=== PATIENT | female | born 1940 | race African-American/Black ===

== ENCOUNTER 2016-06-29 05:24 | Inpatient (IN) | payer MEDICARE, BC ==
[2016-06-27 13:16] LABS: BASOPHILS 0.2 %; BASOPHILS ABSOLUTE 0.02 10/3/uL (0.0-0.16); EOSINOPHILS 0.5 %; EOSINOPHILS ABSOLUTE 0.04 10/3/uL (0.0-0.53); HEMATOCRIT 36.4 % (36.0-48.0); HEMOGLOBIN 11.3 g/dL (12.0-16.0); IMMATURE GRANULOCYTES 0.2 %; IMMATURE GRANULOCYTES ABSOLUTE 0.02 10/3/uL (0.0-0.11); LYMPHOCYTES 10.3 %; LYMPHOCYTES ABSOLUTE 0.83 10/3/uL (0.67-4.30); MEAN CORPUSCULAR HEMOGLOB 25.9 pg (26.0-34.0); MEAN CORPUSCULAR VOLUME 83.5 fL (80-100); MEAN PLATELET VOLUME 9.1 fL (9.2-13.0); MONOCYTES 4.5 %; MONOCYTES ABSOLUTE 0.36 10/3/uL (0.21-1.20); NEUTROPHILS 84.3 %; PLATELET COUNT 158 10/3/uL (150-400); RBC DISTRIBUTION WIDTH 16.4 % (12.0-16.0); RED CELL COUNT 4.36 10/6/uL (4.0-5.6); WHITE BLOOD CELLS 8.1 10/3/uL (4.5-10.5)
[2016-06-27 13:17] LABS: MANUAL DIFF NO %
[2016-06-27 13:31] LABS: BUN (BLOOD UREA NITROGEN) 15 MG/DL (6-23); CALCIUM, SERUM 8.8 MG/DL (8.5-10.4); CHLORIDE, SERUM 109 MMOL/L (96-112); CO2 (CARBON DIOXIDE) 26 MMOL/L (24-34); CREATININE 1.02 MG/DL (0.55-1.02); GFR AFRICAN AMERICAN 62 ML/MIN (>=60); GFR NON AFRICAN AMERICAN 53 ML/MIN (>=60); POTASSIUM, SERUM 3.8 MMOL/L (3.5-5.3); SODIUM, SERUM 144 MMOL/L (135-148)
[2016-06-27 13:32] LABS: GLUCOSE, SERUM 116 MG/DL (60-99)
[2016-06-27 13:53] LABS: ASCORBIC ACID (UR NOT ORDER) NEG (NEG); BILIRUBIN, URINE NEGATIVE (NEG); KETONE, URINE NEGATIVE (NEG); LEUKOCYTE ESTERASE(NOT OR NEG (NEG); WBC (NOT ORDERED) (RFLEX) 5 (0-5)
--- NOTE | ~2016-06-29 | OP ---
Record Of Operation [facility] [address] [place]. [address] NAME: SUSIE PACHECO : 39 STATUS : DIS IN PAT#: [id number] AGE: 75 ADM/REG DATE : 06/29/16 MR#: [id number] REPORT SERV DATE: 07/11/16 DICTATED BY: RANDOLPH ALONSO II DATE: 07/08/16 REPORT STATUS : Draft TRANSCRIBED BY: MODL DATE: 07/08/16 DATE OF PROCEDURE: 06/29/2016 SURGEON: Randolph Alonso M.D. FACILITY SERVICE MANAGER: Dr. Holloway. 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 PROCEDURES: 1. Ultrasound-guided sheath insertion into left common femoral artery. 2. Distal thoracic and abdominal aortogram. 3. Placement of second sheath into left upper extremity brachial artery. 4. Selective catheterization of celiac artery. 5. Percutaneous endovascular repair of distal thoracoabdominal aneurysm using an aorto to aorto prosthesis. 6. Placement of distal extension cuff x2 for treatment of type 1 endoleak. 7. Percutaneous endovascular anchoring of distal attachment site of thoracoabdominal stent graft. ANESTHESIA: General. IV FLUIDS: 1300 mL. ESTIMATED BLOOD LOSS: 300 mL. CONTRAST: 139. BRIEF HISTORY: Ms. Pacheco is a pleasant 75-year-old female whom we followed for a distal thoracic aneurysm that extends down to the base near the celiac. She has had progressive enlargement of the aneurysm. She now reports occasional back pain and left-sided pain. She has extremely small body habitus. The diameter of the aorta is greater than two times of the normal thoracic or and infrarenal aorta. After a long discussion with the patient, she was recommended to undergo endovascular repair. In order to repair the graft from an endovascular standpoint, this would require possible stenting of the celiac artery, and I discussed this in depth with the patient and the relative. Ultimately we will use of the device based on the distal . DETAILS OF THE PROCEDURE: She was taken to the operating room and placed in supine position on the table. The abdomen and both groins and the left arm were prepped and draped in a sterile fashion. We used ultrasound to identify the brachial artery and both femoral arteries, performed a percutaneous puncture on the groin, so we placed a ProGlide devices and then passed an 11-Portuguese sheath. We then passed a catheter into the abdominal aorta and into the thoracic aorta. Aortogram was performed demonstrating a large aneurysm that did in Record Of Operation [facility] [id number] [place]. [address] NAME: USSIE PACHECO : 39 STATUS : DIS IN PAT#: [id number] AGE: 75 ADM/REG DATE : 06/29/16 MR#: [id number] REPORT SERV DATE: 07/11/16 DICTATED BY: RANDOLPH ALONSO II DATE: 07/08/16 REPORT STATUS : Draft TRANSCRIBED BY: GEORGINA DATE: 07/08/16 fact extend down to near the base of the celiac artery. The renal vessels were patent. The SMA was patent. There was a significant size discrepancy between the thoracic aorta and abdominal aorta. We elected to proceed with repair of this using two aortic stent grafts with a snorkel technique in the celiac. We then passed the main body of the first stent graft into the distal thoracic aorta, and we deployed this with good fixation in the proximal through the aneurysm down to near the base of the celiac artery. We then coming from the arm, we catheterized the celiac artery inside the existing graft and then placed a sheath down in the celiac artery. We performed an angiogram that obviously demonstrated a type 1 leak distally. We assumed that there would be no seal at this location. We then elected to proceed with placement of an extension cuff, and we passed the second main body of the device from the groin and passed this to within the existing stent graft so that the celiac stent was between these two endo grafts "sandwich technique." We then deployed this down to just below the celiac artery. Completion angiogram demonstrates a good result, however, there is still evidence of a type 1 endoleak distally with some migration of the graft upward. We ballooned this twice and then attempted to place an endovascular staple. We were successful in placing one endovascular anchor, but one of the anchors dislodged and went into a very small tertiary branch of the left renal. This was felt to not be clinically significant. At this point, despite ballooning as well as endo anchors, we elected to place a third piece, this was placed in the main body of the device and deployed down to well below the celiac arteries just above the SMA, and we had previously placed a catheter within the SMA to confirm this stent placement. At this point, we ballooned at the distal attachment site, and we placed three additional anchors within the distal attachment site, and at this point, a completion aortogram demonstrates excellent result. The thoracic stent graft was patent. There was no further type 1 leak. There was no type 3 leak. There was good flow demonstrated through the celiac stent. There was also preserved flow in both renals as well as well as the SMA. We then removed the catheter from the left arm and held manual pressure to hemostatic. We removed the catheter from both groins and closed these percutaneously. At the end of procedure, Ms. Pacheco was stable. She had tolerated it well. She was awoken from anesthesia. She did have a spinal drain in place. She was able to move both feet and was neurologically intact, and she was transported to the recovery room in good condition. JOCELYNE/GEORGINA Randolph Alonso II, M.D. / [id number] CC: Alesha Fuentes II, M.D.
--- NOTE | ~2016-06-29 | DS ---
Discharge Summary [facility] [address] [facility] [place]. [address] NAME: SUSIE PACHECO : 39 STATUS : DIS IN PAT#: [id number] AGE: 75 ADM/REG DATE : 06/29/16 MR#: [id number] REPORT SERV DATE: 07/15/16 DICTATED BY: SUSANA ALONSO II DATE: 07/14/16 REPORT STATUS : Draft TRANSCRIBED BY: GEORGINA DATE: 07/14/16 Data Collection from hospitalization DISCHARGE DIAGNOSES: 1. 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 2. History of multiple myeloma. 3. Hyperlipidemia. 4. History of abdominal aortic aneurysm. CONSULTATIONS: None. PROCEDURES PERFORMED: Ultrasound-guided sheath insertion into the left common femoral artery. Distal thoracic and abdominal aortogram. Placement of second sheath into the left upper extremity brachial artery. Selective catheterization of the celiac artery. Percutaneous endovascular repair of distal thoracoabdominal aneurysm using an aorto to aorto prosthesis. Placement of distal extension cath x2 for treatment of type 1 endoleak. Percutaneous endovascular anchoring of distal attachment site of thoracoabdominal stent graft; 06/29/2016. DISCHARGE MEDICATIONS: Colace 100 mg twice a day, Neurontin 300 mg every day at bedtime, levothyroxine 75 mcg daily, Mevacor 40 mg at bedtime, Deltasone 5 mg daily, Tylenol 650 mg every six hours as needed, Fosamax 70 mg every seven days, Plavix 75 mg daily for 30 days, and aspirin 81 mg daily for lifetime. CONDITION AT DISCHARGE: Stable. DISPOSITION: The patient was discharged to [facility] on a cardiac diet with activities as instructed. HOSPITAL COURSE: This is a 75-year-old female who has a history of thoracoabdominal aneurysm that we have followed over the past several years. She reported occasional left flank pain but no perez abdominal pain. She has progressive enlargement of the aneurysm. She has an extremely small body habitus. The diameter of the aorta is greater than 2 times of the normal thoracic and/or infrarenal aorta. Treatment options were discussed, and it was elected to proceed with surgical intervention. She was admitted to the hospital at this time for further evaluation and treatment. Upon admission, she was taken to the operating room where she underwent the above-mentioned procedure. She tolerated this well. There were no complications. A spinal drain was placed as well. This was placed at the T12-L1, position. On postop day #1, she had no complaints of pain. She was breathing well. She had no numbness or tingling sensation to her extremities. She was placed on a regular diet. The patient agreed to participate in the [employer] registry. On the , she had some lower extremity weakness that had resolved. A normal saline bolus was given as she did have some decreased urine output. Simethicone was given for gas pain. On 07/02/2016, she was doing well. She had no further numbness or lower extremity weakness. She was tolerating her diet. White count was 12. Spinal drain was removed. The Salvador catheter was discontinued. DVT prophylaxis was going to begin. The lumbar drain was discontinued. Discharge Summary [facility] [id number] [place]. [address] NAME: SUSIE PACHECO : 39 STATUS : DIS IN PAT#: [id number] AGE: 75 ADM/REG DATE : 06/29/16 MR#: [id number] REPORT SERV DATE: 07/15/16 DICTATED BY: SUSANA ALONSO II DATE: 07/14/16 REPORT STATUS : Draft TRANSCRIBED BY: MODLeigh DATE: 07/14/16 On 07/03/2016, she continued to do well. She had no neurologic deficits. She had no complaints of abdominal pain. Over the next couple of days, she continued to progress. She was tolerating oral intake but not normal amounts. She was intact neurologically, platelet count was improving. Thrombocytopenia had improved. Her anemia was stable with no signs of bleeding. Occupational Therapy evaluated the patient. Discharge planning was performed on 07/05/2016. She had no complaints of pain in her groin. She did have some mild back pain that is chronic and stable. She was eating well. She was working with Occupational and Physical Therapy. Dual anti-platelet therapy was going to be provided. Discharge instructions were given. Due to her improved and stable condition, she was discharged to [facility] with the above-stated instructions. Information collected by: Layla Mcpherson I submit the above information as my discharge summary. TG/MODL Susana Alonso II, M.D. / [id number] CC: Alesha Fuentes II, M.D. [facility]
[~2016-06-29 05:24] MED LIST: BACDS PO; CALTRA600D PO; DENIES; FOLIC PO; FOSAMAX70 MG PO; LEVOTHYROXIN75 MCG PO; MEVACOR40 MG PO; NEUR100 PO; NEUR300 PO; OS500+D PO; P5 PO; STERAPRED DS10 MG; VITAMIN B 12 PO
[2016-06-29 12:43] LABS: BASOPHILS 0.2 %; BASOPHILS ABSOLUTE 0.01 10/3/uL (0.0-0.16); EOSINOPHILS 0.5 %; EOSINOPHILS ABSOLUTE 0.03 10/3/uL (0.0-0.53); HEMOGLOBIN 9.2 g/dL (12.0-16.0); IMMATURE GRANULOCYTES 0.7 %; IMMATURE GRANULOCYTES ABSOLUTE 0.04 10/3/uL (0.0-0.11); LYMPHOCYTES 18.5 %; LYMPHOCYTES ABSOLUTE 1.04 10/3/uL (0.67-4.30); MEAN CORPUS HGB CONC 31.8 g/dL (32.0-36.0); MEAN CORPUSCULAR HEMOGLOB 26.4 pg (26.0-34.0); MEAN PLATELET VOLUME 8.4 fL (9.2-13.0); MONOCYTES 6.4 %; MONOCYTES ABSOLUTE 0.36 10/3/uL (0.21-1.20); NEUTROPHILS 73.7 %; NEUTROPHILS ABSOLUTE 4.14 10/3/uL (2.02-8.40); RBC DISTRIBUTION WIDTH 16.2 % (12.0-16.0); WHITE BLOOD CELLS 5.6 10/3/uL (4.5-10.5)
[2016-06-29 12:44] LABS: HEMATOCRIT 28.9 % (36.0-48.0); PLATELET COUNT 102 10/3/uL (150-400); RED CELL COUNT 3.48 10/6/uL (4.0-5.6)
[2016-06-29 12:45] LABS: MANUAL DIFF NO %
[2016-06-29 12:53] LABS: BUN (BLOOD UREA NITROGEN) 10 MG/DL (6-23); CALCIUM, SERUM 7.9 MG/DL (8.5-10.4); CHLORIDE, SERUM 111 MMOL/L (96-112); CO2 (CARBON DIOXIDE) 25 MMOL/L (24-34); CREATININE 0.82 MG/DL (0.55-1.02); GFR AFRICAN AMERICAN 81 ML/MIN (>=60); GFR NON AFRICAN AMERICAN 70 ML/MIN (>=60); GLUCOSE, SERUM 124 MG/DL (60-99); POTASSIUM, SERUM 3.6 MMOL/L (3.5-5.3); SODIUM, SERUM 145 MMOL/L (135-148)
[2016-06-30 03:37] LABS: HEMOGLOBIN 8.6 g/dL (12.0-16.0); MEAN CORPUS HGB CONC 31.9 g/dL (32.0-36.0); MEAN CORPUSCULAR HEMOGLOB 26.5 pg (26.0-34.0); MEAN CORPUSCULAR VOLUME 83.3 fL (80-100); PLATELET COUNT 93 10/3/uL (150-400); RED CELL COUNT 3.24 10/6/uL (4.0-5.6)
[2016-06-30 03:38] LABS: MANUAL DIFF YES %; WHITE BLOOD CELLS 10.9 10/3/uL (4.5-10.5)
[2016-06-30 04:12] LABS: BUN (BLOOD UREA NITROGEN) 10 MG/DL (6-23); CALCIUM, SERUM 7.9 MG/DL (8.5-10.4); CHLORIDE, SERUM 112 MMOL/L (96-112); CO2 (CARBON DIOXIDE) 24 MMOL/L (24-34); CREATININE 0.88 MG/DL (0.55-1.02); GFR AFRICAN AMERICAN 74 ML/MIN (>=60); GFR NON AFRICAN AMERICAN 64 ML/MIN (>=60); GLUCOSE, SERUM 101 MG/DL (60-99); POTASSIUM, SERUM 3.4 MMOL/L (3.5-5.3); SODIUM, SERUM 146 MMOL/L (135-148)
[2016-06-30 04:27] LABS: BAND NEUTROPHILS 6 %; IMMATURE GRANS ABSOLUTE (CALC) 0.44 10/3/uL (0.0-0.11); LYMPHOCYTES 5 %; LYMPHOCYTES ABSOLUTE (CALC) 0.55 10/3/uL (0.67-4.30); METAMYELOCYTES 2 %; MONOCYTES 3 %; MONOCYTES ABSOLUTE (CALC) 0.33 10/3/uL (0.21-1.20); MYELOCYTES 2 %; NEUTROPHILS ABSOLUTE (CALC) 9.59 10/3/uL (2.02-8.40); PLATELET ESTIMATE DEC (ADEQUATE); RBC MORPHOLOGY NORM (NORMAL); SEGMENTED NEUTROPHIL (0) 82 %; TOTAL NUCLEATED CELLS 100
[2016-07-01 04:20] LABS: BUN (BLOOD UREA NITROGEN) 12 MG/DL (6-23); CALCIUM, SERUM 7.7 MG/DL (8.5-10.4); CHLORIDE, SERUM 107 MMOL/L (96-112); CO2 (CARBON DIOXIDE) 26 MMOL/L (24-34); CREATININE 0.98 MG/DL (0.55-1.02); GFR AFRICAN AMERICAN 65 ML/MIN (>=60); GFR NON AFRICAN AMERICAN 56 ML/MIN (>=60); GLUCOSE, SERUM 110 MG/DL (60-99); POTASSIUM, SERUM 3.8 MMOL/L (3.5-5.3); SODIUM, SERUM 140 MMOL/L (135-148)
[2016-07-01 04:31] LABS: BASOPHILS 0.1 %; BASOPHILS ABSOLUTE 0.01 10/3/uL (0.0-0.16); EOSINOPHILS 0 %; HEMATOCRIT 27.4 % (36.0-48.0); HEMOGLOBIN 8.5 g/dL (12.0-16.0); IMMATURE GRANULOCYTES 0.4 %; IMMATURE GRANULOCYTES ABSOLUTE 0.06 10/3/uL (0.0-0.11); LYMPHOCYTES 6.7 %; MEAN CORPUSCULAR HEMOGLOB 26.1 pg (26.0-34.0); MEAN PLATELET VOLUME 10.1 fL (9.2-13.0); MONOCYTES 8.5 %; MONOCYTES ABSOLUTE 1.28 10/3/uL (0.21-1.20); NEUTROPHILS 84.3 %; NEUTROPHILS ABSOLUTE 12.63 10/3/uL (2.02-8.40); PLATELET COUNT 90 10/3/uL (150-400); RBC DISTRIBUTION WIDTH 16.3 % (12.0-16.0); RED CELL COUNT 3.26 10/6/uL (4.0-5.6)
[2016-07-01 04:33] LABS: MANUAL DIFF NO %
[2016-07-02 04:52] LABS: BUN (BLOOD UREA NITROGEN) 14 MG/DL (6-23); CALCIUM, SERUM 7.7 MG/DL (8.5-10.4); CHLORIDE, SERUM 108 MMOL/L (96-112); CO2 (CARBON DIOXIDE) 24 MMOL/L (24-34); CREATININE 0.98 MG/DL (0.55-1.02); GFR AFRICAN AMERICAN 65 ML/MIN (>=60); GFR NON AFRICAN AMERICAN 56 ML/MIN (>=60); GLUCOSE, SERUM 114 MG/DL (60-99); POTASSIUM, SERUM 4.2 MMOL/L (3.5-5.3); SODIUM, SERUM 140 MMOL/L (135-148)
[2016-07-02 07:10] LABS: BASOPHILS 0.1 %; BASOPHILS ABSOLUTE 0.01 10/3/uL (0.0-0.16); EOSINOPHILS 0.3 %; EOSINOPHILS ABSOLUTE 0.03 10/3/uL (0.0-0.53); HEMOGLOBIN 7.6 g/dL (12.0-16.0); IMMATURE GRANULOCYTES 0.4 %; IMMATURE GRANULOCYTES ABSOLUTE 0.05 10/3/uL (0.0-0.11); LYMPHOCYTES 7.4 %; LYMPHOCYTES ABSOLUTE 0.89 10/3/uL (0.67-4.30); MEAN CORPUS HGB CONC 31.1 g/dL (32.0-36.0); MEAN CORPUSCULAR HEMOGLOB 26.4 pg (26.0-34.0); MEAN CORPUSCULAR VOLUME 84.7 fL (80-100); MEAN PLATELET VOLUME 10.1 fL (9.2-13.0); MONOCYTES 7.7 %; MONOCYTES ABSOLUTE 0.92 10/3/uL (0.21-1.20); NEUTROPHILS 84.1 %; NEUTROPHILS ABSOLUTE 10.06 10/3/uL (2.02-8.40); PLATELET COUNT 84 10/3/uL (150-400); RBC DISTRIBUTION WIDTH 16.6 % (12.0-16.0); RED CELL COUNT 2.88 10/6/uL (4.0-5.6)
[2016-07-02 07:12] LABS: HEMATOCRIT 24.4 % (36.0-48.0); MANUAL DIFF NO %
[2016-07-03 03:33] LABS: BASOPHILS 0 %; EOSINOPHILS 0.8 %; EOSINOPHILS ABSOLUTE 0.08 10/3/uL (0.0-0.53); HEMATOCRIT 22.7 % (36.0-48.0); HEMOGLOBIN 7.1 g/dL (12.0-16.0); IMMATURE GRANULOCYTES 0.4 %; IMMATURE GRANULOCYTES ABSOLUTE 0.04 10/3/uL (0.0-0.11); LYMPHOCYTES 6.7 %; LYMPHOCYTES ABSOLUTE 0.64 10/3/uL (0.67-4.30); MEAN CORPUS HGB CONC 31.3 g/dL (32.0-36.0); MEAN CORPUSCULAR VOLUME 83.2 fL (80-100); MEAN PLATELET VOLUME 9.9 fL (9.2-13.0); MONOCYTES 9.1 %; MONOCYTES ABSOLUTE 0.87 10/3/uL (0.21-1.20); NEUTROPHILS ABSOLUTE 7.91 10/3/uL (2.02-8.40); PLATELET COUNT 88 10/3/uL (150-400); RBC DISTRIBUTION WIDTH 16.3 % (12.0-16.0); RED CELL COUNT 2.73 10/6/uL (4.0-5.6); WHITE BLOOD CELLS 9.5 10/3/uL (4.5-10.5)
[2016-07-03 03:37] LABS: MANUAL DIFF NO %
[2016-07-03 03:48] LABS: BUN (BLOOD UREA NITROGEN) 12 MG/DL (6-23); CALCIUM, SERUM 7.6 MG/DL (8.5-10.4); CHLORIDE, SERUM 109 MMOL/L (96-112); CO2 (CARBON DIOXIDE) 24 MMOL/L (24-34); CREATININE 0.98 MG/DL (0.55-1.02); GFR AFRICAN AMERICAN 65 ML/MIN (>=60); GFR NON AFRICAN AMERICAN 56 ML/MIN (>=60); GLUCOSE, SERUM 102 MG/DL (60-99); POTASSIUM, SERUM 3.6 MMOL/L (3.5-5.3); SODIUM, SERUM 140 MMOL/L (135-148)
[2016-07-04 04:59] LABS: BASOPHILS 0.1 %; BASOPHILS ABSOLUTE 0.01 10/3/uL (0.0-0.16); EOSINOPHILS 1.2 %; HEMATOCRIT 22.2 % (36.0-48.0); HEMOGLOBIN 7.2 g/dL (12.0-16.0); IMMATURE GRANULOCYTES 0.6 %; IMMATURE GRANULOCYTES ABSOLUTE 0.05 10/3/uL (0.0-0.11); LYMPHOCYTES 11.1 %; LYMPHOCYTES ABSOLUTE 0.91 10/3/uL (0.67-4.30); MEAN CORPUS HGB CONC 32.4 g/dL (32.0-36.0); MEAN CORPUSCULAR HEMOGLOB 26.5 pg (26.0-34.0); MEAN CORPUSCULAR VOLUME 81.6 fL (80-100); MEAN PLATELET VOLUME 8.9 fL (9.2-13.0); MONOCYTES 10.3 %; MONOCYTES ABSOLUTE 0.85 10/3/uL (0.21-1.20); NEUTROPHILS 76.7 %; PLATELET COUNT 103 10/3/uL (150-400); RBC DISTRIBUTION WIDTH 16.4 % (12.0-16.0); RED CELL COUNT 2.72 10/6/uL (4.0-5.6); WHITE BLOOD CELLS 8.2 10/3/uL (4.5-10.5)
[2016-07-04 05:01] LABS: MANUAL DIFF NO %
[2016-07-04 05:08] LABS: BUN (BLOOD UREA NITROGEN) 13 MG/DL (6-23); CALCIUM, SERUM 8.1 MG/DL (8.5-10.4); CHLORIDE, SERUM 108 MMOL/L (96-112); CO2 (CARBON DIOXIDE) 27 MMOL/L (24-34); CREATININE 0.98 MG/DL (0.55-1.02); GFR AFRICAN AMERICAN 65 ML/MIN (>=60); GFR NON AFRICAN AMERICAN 56 ML/MIN (>=60); GLUCOSE, SERUM 98 MG/DL (60-99); POTASSIUM, SERUM 3.9 MMOL/L (3.5-5.3); SODIUM, SERUM 140 MMOL/L (135-148)
== END 2016-07-05 15:36 | DRG 221 ==
LOC: SDC/OF 05:24 → PACU 12:31 → CVICU 16:17 → 2SO 07-03 22:21
PROVIDERS: Student in an Organized Health Care Education/Training Program; Surgery
PROC: B3101ZZ Fluoroscopy of Thoracic Aorta using Low Osmolar Contrast (ICD-10-PCS; 2016-06-29)
PROC: B41G1ZZ Fluoroscopy of Left Lower Extremity Arteries using Low Osmolar Contrast (ICD-10-PCS; 2016-06-29)
PROC: 009U30Z Drainage of Spinal Canal with Drainage Device, Percutaneous Approach (ICD-10-PCS; 2016-06-29)
PROC: 02VW3EZ Restriction of Thoracic Aorta, Descending with Branched or Fenestrated Intraluminal Device, One or Two Arteries, Percutaneous Approach (ICD-10-PCS; principal; 2016-06-29 08:15)
PROC: B4101ZZ Fluoroscopy of Abdominal Aorta using Low Osmolar Contrast (ICD-10-PCS; 2016-06-29 08:15)
PROC: 04V03EZ Restriction of Abdominal Aorta with Branched or Fenestrated Intraluminal Device, One or Two Arteries, Percutaneous Approach (ICD-10-PCS; 2016-06-29 08:15)
PROC: 02V Heart and Great Vessels, Restriction (ICD-10-PCS; 2016-06-29 08:15)
DX: I71.6 Thoracoabdominal aortic aneurysm, without rupture (principal); D69.6 Thrombocytopenia, unspecified; D64.9 Anemia, unspecified; E78.5 Hyperlipidemia, unspecified; I71.4 Abdominal aortic aneurysm, without rupture; Z86.718 Personal history of other venous thrombosis and embolism; Z90.710 Acquired absence of both cervix and uterus; Z98.890 Other specified postprocedural states; Z92.21 Personal history of antineoplastic chemotherapy; Z92.3 Personal history of irradiation; Z85.79 Personal history of other malignant neoplasms of lymphoid, hematopoietic and related tissues
CPT/HCPCS: 33881; 36200; 36245; 36415; 71010; 71020; 75957; 80048; 81001; 82962; 83735; 85025; 86850; 86900; 86901; 87641; 93005; 97116-GP; 97161-GP; 97165-GO; A9270-GY; C1713; C1725; C1751; C1760; C1769; C1874; C1876; C1894; G8978-CK-GP; G8979-CH-GP; G8987-CJ-GO; G8988-CJ-GO; G8989-CJ-GO; J0690; J2250; J2370; J2405; J2710; J2720; J3010; J3475; P9045; Q9966